=== PATIENT | male | born 1985 | race Caucasian/White ===

== ENCOUNTER → 2017-09-28 | Outpatient (CLI) | payer OTHER ==
[~2017-09-28] MED LIST: GADAVIST IV PRN
--- NOTE | 2017-09-28 14:24 | DIAGNOSTIC IMAGING REPORT ---
Brain MRI WITH AND WITHOUT CONTRAST HISTORY: WEAKNESS OF LEFT LEG,R/OSTROKE TECHNIQUE: Multiplanar multisequence MRI of the brain was performed both before and after the intravenous administration of contrast. COMPARISON STUDY: None. FINDINGS: There are no areas of restricted diffusion to suggest acute infarction. The midline structures are intact. The paranasal sinuses are clear. The mastoid air cells are clear. The ventricles and sulci are within normal limits for age. There is no mass, hematoma, midline shift. The major vascular flow-voids at the skull base are well maintained. Postcontrast sequences show no areas of abnormal enhancement. IMPRESSION: No acute intracranial abnormality. Electronically signed by: Mohinder Turpin M.D. 09/28/2017 2:23 PM Dictated Date/Time: 09/28/2017 2:02 PM
== END | disposition home or self-care (01) ==
LOC: C.MRI 12:56
PROVIDERS: ATTEND Family Medicine
DX: R29.898 Other symptoms and signs involving the musculoskeletal system (principal); R53.1 Weakness

== ENCOUNTER → 2017-10-05 | Outpatient (CLI) | payer OTHER ==
--- NOTE | 2017-10-05 11:05 | DIAGNOSTIC IMAGING REPORT ---
MRI OF THE LEFT KNEE WITHOUT CONTRAST CLINICAL HISTORY: Left knee stiffness and pain. No recent trauma. COMPARISON STUDY: None. TECHNIQUE: Utilizing a 1.5 Ramya magnet and dedicated coil, multiplanar, multiecho imaging of the left knee was performed without intravenous or intraarticular contrast. FINDINGS: Alignment of the left knee is anatomic. The extensor mechanism is intact. There is no joint effusion. There is no marrow edema or marrow replacement. The trochlear groove is shallow. There is no evidence for patellar subluxation. Exam is mildly compromised by motion artifact but is diagnostic. No meniscal tear is identified. The medial collateral ligament and lateral collateral ligament complex are intact. The posterior cruciate ligament is intact. The anterior cruciate ligament is somewhat diminutive with adjacent joint fluid. However, the anterior cruciate ligament is intact. No significant cartilage abnormality is identified. IMPRESSION: 1. No definite internal derangement of the left knee. 2. Anterior cruciate ligament somewhat diminutive with small amount of adjacent joint fluid. However, ACL intact. No full-thickness tear. 3. No meniscal tear. 4. No chondral abnormality. Electronically signed by: Leno Mcclain M.D. 10/05/2017 11:04 AM Dictated Date/Time: 10/05/2017 10:51 AM
== END | disposition home or self-care (01) ==
LOC: C.MRI 09:36
PROVIDERS: ATTEND Family Medicine
DX: R29.898 Other symptoms and signs involving the musculoskeletal system (principal); M25.662 Stiffness of left knee, not elsewhere classified